=== PATIENT | male | born 1985 | race Caucasian/White ===

== ENCOUNTER 2020-11-09 08:22 | Outpatient (REF) | payer OTHER, SELFPAY ==
[2020-11-09 11:06] LABS: Alanine Aminotransferase 28 U/L (0-40); Albumin Level 4.9 g/dL (3.5-5.0); Alkaline Phosphatase 69 U/L (39-117); Anion Gap 12 (12-20); Aspartate Amino Transferase 20 U/L (5-37); Bilirubin Total 0.3 mg/dL (0.0-1.0); Blood Urea Nitrogen 21 mg/dL (9-16); Calcium 9.7 mg/dL (8.4-10.2); Carbon Dioxide 29 mmol/L (22-29); Chloride 103 mmol/L (96-108); Cholesterol 224 mg/dL; Estimated Glomerular Filt Rate > 60; Glucose Fasting 92 mg/dL (60-99); HDL Cholesterol 64 mg/dL; LDL Cholesterol Calculated 142 mg/dl; Sodium 139 mmol/L (135-145); Total Protein 7.6 g/dL (6.5-8.0); Triglycerides 92 mg/dL
[2020-11-09 11:30] LABS: TSH reflex Free T4 0.71 uIU/mL (0.32-4.0)
[2020-11-10 21:11] LABS: Lyme Abs Screen <0.90 index
== END 2020-11-09 08:23 | disposition home or self-care (01) ==
LOC: HO.WFDLDS 08:22
PROVIDERS: Visit Provider Family Medicine
DX: Z00.00 Encounter for general adult medical examination without abnormal findings (principal); T14.8XXA Other injury of unspecified body region, initial encounter; W57.XXXA Bitten or stung by nonvenomous insect and other nonvenomous arthropods, initial encounter
CPT/HCPCS: 36415; 80053; 80061; 84443; 86618

== ENCOUNTER 2023-09-02 09:08 | Outpatient (AMB) | payer BC, SELFPAY ==
--- NOTE | 2023-09-02 09:29 | MHC.PC.OV ---
Vital Signs 09/02/23 09:30 Height 5 ft 11 in Weight 191 lb BMI 26.6 BP 134/80 Blood Pressure Location Rt brachial Position Sitting Respiration 13 Pulse 85 Pulse Source Pulse Oximeter Temp 98 F Temp Source Temporal Artery Scan Pulse Oximetry (%) 99 Oxygen Delivery Method Room Air Intake Visit Reasons: Back Pain Intake Note: Patient states that legs have been going numb and believes its a piched never or a slipped disc. Patient just wants to make sure because he works at a job that is very physical. Patient would also like to know if theres anyway to get tests ordered to check if he has the gene for cancer due to it running in his family. 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 Accompanied by: Self / Same As Patient Allergies No Known Allergies Allergy (Verified 09/02/23 09:53) Tobacco use date assessed: 09/02/23 Dental Screening Dental Screen Date: 09/02/23 Did you have a dental visit in the last 12 months?: Yes Did you have a dental problem in the last 6 months where you did not have access to dental care?: No Was dental information given to patient?: Patient has dentist HPI HPI Comments History of Present Illness Details 37-year-old male presents with complaints of intermittent left sided low back pain with associated intermittent numbness to his BLE, left worse than right. He described the pain as pinching/stabbing and has been on and off for the past 6 months. He notes that his symptoms have progressively gotten worse. No injury or trauma. 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 No loss of sensation. He has been taking Advil and Ibuprofen with minimal relief. [facility] Medical History (Updated 09/02/23 @ 10:05 by King Choudhary CNP) Dog bite of face Surgical History (Updated 09/02/23 @ 09:39 by Lizett Saucedo MA) H/O neck surgery Family History Father No problems noted. Mother No problems noted. Social History Housing: House Alcohol intake: current Alcohol intake frequency: a few times a week Patient Tobacco Use Status: Current someday Tobacco user Tobacco use type: Cigarette Cigarettes Per Day: 2 Years Smoked: 18 e-Cigarette/Vaping Use: Currently Using service: No Current occupational status: employed Current occupation: [employer] ([employer]) Cognitive needs: No Hearing needs: No Vision needs: Yes Review of Systems Const Details: Const Denies chills, Denies fatigue, Denies fever(s), Denies headache(s) and Denies weakness ENT Denies dizziness and Denies headache(s) Card Denies chest pain, Denies lightheadedness, Denies dyspnea and Denies other (Palpitations) Resp Denies cough, Denies dyspnea, Denies wheezing and Denies other ( shortness of breath) GI Denies abdominal pain, Denies melena, Denies hematochezia, Denies change in bowel habits, Denies dyspepsia and Denies nausea Denies hematuria and Denies dysuria Musc Reports as per HPI Skin/Breast Denies rash, Denies unusual bruising and Denies wounds Neuro Denies abnormal gait, Denies dizziness, Denies headache(s), Denies memory loss, Denies numbness, Denies Sensory deficit (Neuro), Denies tingling and Denies weakness Psych Denies anxiety, Denies depression, Denies memory loss Endo Denies cold intolerance, Denies fatigue, Denies heat intolerance, Denies polydipsia and Denies polyuria Aller/Immun Denies wheezing Physical exam (Primary Care) Vital Signs: Last Vital Signs Temp 98 F 09/02/23 09:30 Pulse 85 09/02/23 09:30 Resp 13 09/02/23 09:30 BP 134/80 09/02/23 09:30 Pulse Ox 99 09/02/23 09:30 Oxygen Delivery Method Room Air 09/02/23 09:30 BMI result Body Mass Index 26.6 Tobacco/Smoking Status: Tobacco use Status Tobacco use date assessed 09/02/23 09/02/23 09:40 Patient Tobacco Use Status Current someday Tobacco 09/02/23 09:40 Tobacco use type Cigarette 09/02/23 09:40 e-Cigarette/Vaping Use Currently Using 09/02/23 09:40 Const Other: General: no acute distress and well developed Nutritional Appearance: well nourished Orientation/consciousness: patient oriented x3 HENMT Head: Yes normocephalic and Yes atraumatic Eyes General: appearance normal, both eyes and all related structures Pupils: Equal, round and reactive pupils present EOM: EOMs intact bilaterally Resp Effort & Inspection: normal respiratory effort Auscultation: clear to auscultation bilaterally Cardio Rate: regular rate Rhythm: regular rhythm Heart sounds: S1 normal heart sound present, S2 normal heart sound present, no gallops, no murmurs and no rubs GI Palpation (GI): No Abdominal aortic bruit present, Soft to palpation, nontender, No hepatosplenomegaly present and No Rebound tenderness present Auscultation: normal bowel sounds General: Yes no CVA tenderness Back/Spine/Pelvis Back: no CVA tenderness Cervical Spine: cervical ROM normal and No Cervical spine tenderness Thoracic/Lumbar Spine: thoraco-lumbar ROM normal, No pain with thoraco-lumbar ROM, No thoracic spinal tenderness and lumbar spinal tenderness Extrem General: Yes normal to inspection, No edema and No calf tenderness Positive straight leg raise bilaterally Skin General: warm and dry. Normal skin color. Normal skin turgor Neuro General: patient oriented x3, gait normal and no focal neuro deficit Cranial nerves: Yes Equal, round and reactive pupils present Cognition (Neuro): normal cognition Gait exam (Neuro): Normal gait present Sensory Exam: No Sensory deficit (Neuro) Psych Appearance: grossly normal Affect: normal affect Attitude: cooperative Thought process: Normal thought process present Assessment and Plan Assessment & Plan (1) Low back pain with bilateral sciatica: Code(s): M54.42 - Lumbago with sciatica, left side; M54.41 - Lumbago with sciatica, right side Plan: Reports intermittent low back pain with bilateral lower extremity numbness for the past 6 months. His symptoms have progressively worsened Advil and ibuprofen have provided minimal relief Tenderness to palpation of the lumbar spine Straight leg raise bilaterally No overt trauma X-ray of the lumbar spine and pelvis ordered Naproxen and gabapentin as prescribed Work note given for light duty x 2 weeks Follow-up with PCP or return sooner with worsening or new symptoms Verbalized understanding and agreed with treatment plan Orders: Orders XR lumbar spine 2-3V Today M54.41 - Lumbago with sciatica, right side, M54.42 - Lumbago with sciatica, left side XR pelvis 1-2V Today M54.41 - Lumbago with sciatica, right side, M54.42 - Lumbago with sciatica, left side Medications: New gabapentin 300 mg PO BID 30 caps 0RF 15 days naproxen 500 mg PO BID PRN 60 tabs 1RF pain Coding Level of Care Code Est Pt Level 3 (76576) Diagnoses Low back pain with bilateral sciatica M54.42; M54.41
[2023-09-02 09:30] VITALS: BP 134/80; PULSE 85; RESP 13; TEMP 36.6; O2SAT 99; BMI 26.6
== END 2023-09-02 10:18 | disposition home or self-care (01) ==
PROVIDERS: PCP Family Medicine; Visit Provider Nurse Practitioner Family
DX: M54.42 Lumbago with sciatica, left side (principal); M54.41 Lumbago with sciatica, right side
CPT/HCPCS: 99213

== ENCOUNTER 2023-09-22 16:48 | Outpatient (AMB) | payer BC, SELFPAY ==
[2023-09-22 16:52] VITALS: BP 128/80; PULSE 75; RESP 13; TEMP 36.6; O2SAT 99; BMI 27.3
--- NOTE | 2023-09-22 16:52 | A.OFFPC_ITS ---
Vital Signs 09/22/23 16:52 Height 5 ft 11 in Weight 196 lb BMI 27.3 BP 128/80 Blood Pressure Location Rt brachial Position Sitting Respiration 13 Pulse 75 Pulse Source Pulse Oximeter Temp 97.8 F Temp Source Temporal Artery Scan Pulse Oximetry (%) 99 Oxygen Delivery Method Room Air Intake Visit Reasons: Bump on fore head going into eyes with swelling Intake Note: Patient states that he has a cyst on forehead and he is experiencing pressure behind eyes and in bridge of nose as well as his forehead. Monitoring And Evaluation Advisor Required: No Accompanied by: Self / Same As Patient Allergies No Known Allergies Allergy (Verified 09/22/23 16:59) Medication List - Last Reconciled 09/22/23 by King Choudhary CNP gabapentin 300 mg PO BID 15 days naproxen 500 mg PO BID PRN Tobacco use date assessed: 09/02/23 Dental Screening Dental Screen Date: 09/22/23 Did you have a dental visit in the last 12 months?: Yes Did you have a dental problem in the last 6 months where you did not have access to dental care?: No Was dental information given to patient?: Patient has dentist HPI HPI Comments History of Present Illness Details 37-year-old male presents with complaint s of a cyst on the right side of his forehead which has been present for 2 days now. He reports associated pressure sensation to his forehead, nasal septum, and eyes. He reports puffiness around his eyes. No headaches, fever, chills, body aches, fatigue, or weakness. [facility] Medical History (Updated 09/22/23 @ 17:17 by King Choudhary CNP) Dog bite of face Surgical History (Updated 09/02/23 @ 09:39 by Lizett Saucedo MA) H/O neck surgery Family History Father No problems noted. Mother No problems noted. Social History Housing: House Alcohol intake: current Alcohol intake frequency: a few times a week Patient Tobacco Use Status: Current someday Tobacco user Tobacco use type: Cigarette Cigarette Packs Per Day: 0.05 Cigarettes Per Day: 2 Years Smoked: 18 e-Cigarette/Vaping Use: Currently Using service: No Current occupational status: employed Current occupation: [employer] ([employer]) Cognitive needs: No Hearing needs: No Vision needs: Yes Review of Systems Const Details: Const Denies chills, Denies fatigue, Denies fever(s), Denies headache(s) and Denies weakness ENT Denies dizziness and Denies headache(s) Card Denies chest pain, Denies lightheadedness, Denies dyspnea and Denies other (Palpitations) Resp Denies cough, Denies dyspnea, Denies wheezing and Denies other ( shortness of breath) GI Denies abdominal pain, Denies melena, Denies hematochezia, Denies change in bowel habits, Denies dyspepsia and Denies nausea Denies hematuria and Denies dysuria Musc Denies abnormal gait, Denies myalgias, Denies arthralgias, Denies numbness and Denies tingling Skin/Breast Reports as per HPI Neuro Denies abnormal gait, Denies dizziness, Denies headache(s), Denies memory loss, Denies numbness, Denies Sensory deficit (Neuro), Denies tingling and Denies weakness Psych Denies anxiety, Denies depression, Denies memory loss Endo Denies cold intolerance, Denies fatigue, Denies heat intolerance, Denies polydipsia and Denies polyuria Aller/Immun Denies wheezing Physical exam (Primary Care) Vital Signs: Last Vital Signs Temp 97.8 F 09/22/23 16:52 Pulse 75 09/22/23 16:52 Resp 13 09/22/23 16:52 BP 128/80 09/22/23 16:52 Pulse Ox 99 09/22/23 16:52 Oxygen Delivery Method Room Air 09/22/23 16:52 BMI result Body Mass Index 27.3 Tobacco/Smoking Status: Tobacco use Status Tobacco use date assessed 09/02/23 09/02/23 09:40 Patient Tobacco Use Status Current someday Tobacco 09/02/23 09:40 Tobacco use type Cigarette 09/02/23 09:40 e-Cigarette/Vaping Use Currently Using 09/02/23 09:40 Const Other: General: no acute distress and well developed Nutritional Appearance: well nourished Orientation/consciousness: patient oriented x3 HENMT Head: Yes normocephalic and Yes atraumatic Eyes General: appearance normal, both eyes and all related structures. Slight periorbital puffiness noted bilaterally Pupils: Equal, round and reactive pupils present EOM: EOMs intact bilaterally Resp Effort & Inspection: normal respiratory effort Auscultation: clear to auscultation bilaterally Cardio Rate: regular rate Rhythm: regular rhythm Heart sounds: S1 normal heart sound present, S2 normal heart sound present, no gallops, no murmurs and no rubs GI Palpation (GI): No Abdominal aortic bruit present, Soft to palpation, nontender, No hepatosplenomegaly present and No Rebound tenderness present Auscultation: normal bowel sounds General: Yes no CVA tenderness Back/Spine/Pelvis Back: no CVA tenderness Cervical Spine: cervical ROM normal and No Cervical spine tenderness Thoracic/Lumbar Spine: thoraco-lumbar ROM normal, No pain with thoraco-lumbar ROM, No thoracic spinal tenderness and No lumbar spinal tenderness Extrem General: Yes normal to inspection, No edema and No calf tenderness Skin General: warm and dry. Normal skin color. Normal skin turgor Lesions: Approx 2.5 cm, round, firm, intact abscess with fluctuance, and red core Rashes: no rashes Trauma: no lacerations or abrasions Wounds: no wounds Nails: normal Neuro General: patient oriented x3, gait normal and no focal neuro deficit Cranial nerves: Yes Equal, round and reactive pupils present Cognition (Neuro): normal cognition Gait exam (Neuro): Normal gait present Sensory Exam: No Sensory deficit (Neuro) Psych Appearance: grossly normal Affect: normal affect Attitude: cooperative Thought process: Normal thought process present Assessment and Plan Assessment & Plan (1) Abscess of forehead: Code(s): L02.01 - Cutaneous abscess of face Plan: Reports cyst to the right side of his forehead x2 days Approx 2.5 cm, round, firm, intact abscess with fluctuance, and red core Slight periorbital puffiness noted bilaterally Doxycycline as prescribed Warm compresses encouraged Instructed on wound care once abscess drains. Given some sterile gauze in the office Follow-up as planned or return sooner with worsening or new signs and symptoms Verbalized understanding and agreed with treatment plan Medications: New doxycycline hyclate 100 mg PO BID 14 caps 0RF 7 days Coding Level of Care Code Est Pt Level 3 (84813) Diagnoses Abscess of forehead L02.01
== END 2023-09-22 17:51 | disposition home or self-care (01) ==
PROVIDERS: PCP Family Medicine; Visit Provider Nurse Practitioner Family
DX: L02.01 Cutaneous abscess of face (principal)
CPT/HCPCS: 99213